=== PATIENT | male | born 1995 | race Caucasian/White ===

== ENCOUNTER 2022-09-22 17:24 | Emergency (ER) | payer OTHER, SELFPAY ==
--- NOTE | 2022-09-22 17:25 | ED.EAR ---
HPI - Ear Problem General Chief complaint: Ear Stated complaint: Ear Irritation Time Seen by Provider: 09/22/22 17:25 Source: patient Mode of arrival: ambulatory Limitations: no limitations History of Present Illness HPI Narrative: Mr. Rome is a 27-year-old male patient presenting to clinic today with complaints of ear pain and sinus congestion x4 days. He reports no fever or chills. States he is having some dizziness and difficulty hearing Related Data Allergies Allergy/AdvReac Type Severity Reaction Status Date / Time No Known Allergies Allergy Unknown Unverified 09/22/22 18:29 Review of Systems Review of Systems: Pertinent positives per HPI. Patient denies any fever, chills, rash, headache, visual changes, cough, runny nose, sore throat, shortness of breath, chest pain, palpitations, nausea, vomiting, diarrhea, constipation, abdominal pain, or any urinary issues. PMFSH Comments At the time of my signature, I reviewed and agree with the nursing past medical, surgical, social, and family history. There is no relevant family history pertinent to the patient complaint. Exam Narrative: General: Well-developed, well nourished, in no apparent distress Head: Normocephalic, atraumatic Eyes: Pupils equally round and reactive to light bilaterally, EOM intact, sclera and conjunctive clear, no discharge, lids normal Ears: TMs intact, red, bulging, ear canals clear, no drainage, grossly hearing normal. Nose: Nares patent, clear nasal discharge, mild inflammation, no sinus tenderness. Mouth: Oropharynx without lesions or masses, good dentition, MMM. Neck: Supple, trachea midline, no enlargement of anterior or posterior cervical nodes, no thyroid masses or goiter palpable. Cardio: Regular rate and rhythm, s1 and s2 normal, no murmur appreciated. Resp: Clear to auscultation bilaterally anteriorly and posteriorly, no rhonchi, rales, wheezing or rubs Course Course Emergency Course: Portions of this record may have been created with voice recognition software. Level of Care: Express Care Visit Vital Signs Vital signs: Vital signs reviewed Medical Decision Making MDM Narrative Medical decision making narrative: At the time of visit patient is resting comfortably on the exam table. I suspect patient has upper respiratory infection/ otitis media. Supportive measures were discussed with the patient he voiced understanding of discharge instructions agrees to treatment plan. Prescription for amoxicillin and prednisone was sent to the pharmacy. Differential Diagnosis Differential Diagnosis: Otitis media, upper respiratory infection, sinus infection, otitis externa, vertigo Discharge Plan Discharge Clinical Impression: Otitis media, Upper respiratory infection Patient Disposition: Home, Self-Care Condition: Stable Instructions: Antibiotic Form, Ear Infection (ED), Upper Respiratory Infection (ED) Additional Instructions: Take prescription medications only as prescribed- amoxicillin and prednisone Increase fluids and stay well hydrated Tylenol/motrin for pain/fever Flonase and OTC antihistamines as directed Vicks vapor rub to open sinuses Sinus rinses for congestion Cepacol spray, cough drops, throat lozenges, warm tea with honey/lemon, gargle salt water to soothe throat BRAT diet for diarrhea Clear liquids x 24 hours then advance as tolerated for nausea/vomiting Go to the ED if you develop a worsening in your condition- high fever not controlled by Tylenol or Motrin, dehydration, weakness, lethargy, shortness of breath, or chest pain. Follow up with your PCP in 3-5 days if symptoms persist. Prescriptions: New amoxicillin 875 mg tablet 875 mg PO Q12H 7 Days Qty: 14 0RF prednisone 20 mg tablet 40 mg PO DAILY 5 Days Qty: 10 0RF Follow-up/Referrals: UNKNOWN,DOCTOR [Non-Staff] - Time of Disposition: 18:41 Quality NIHSS Nursing Documentation ED NIHSS nursing docum
[2022-09-22 18:42] VITALS: BP 132/93; PULSE 95; RESP 16; TEMP 36.3; O2SAT 100
== END 2022-09-22 18:45 | disposition home or self-care (01) ==
PROVIDERS: Emergency Provider Nurse Practitioner Family
DX: H66.90 Otitis media, unspecified, unspecified ear (principal); J06.9 Acute upper respiratory infection, unspecified
CPT/HCPCS: 99213; G0463